=== PATIENT | female | born 1995 | race American Indian/Alaskan Native ===

== ENCOUNTER 2021-08-10 12:04 | Outpatient (CLI) | payer OTHER | END 2021-08-10 18:00 | disposition home or self-care (01) | LOC: LAB 12:04 → APU 17:18 → LAB 18:00 | DX: O26.893 Other specified pregnancy related conditions, third trimester (principal); Z67.11 Type A blood, Rh negative; Z3A.28 28 weeks gestation of pregnancy | CPT/HCPCS: 86850; 86900; 86901; 96372; J2790 ==